=== PATIENT | female | born 1990 | race Caucasian/White ===

== ENCOUNTER 2017-05-15 08:05 | Inpatient (IN) | payer OTHER ==
[~2017-05-15] VITALS: Ht 157.5 cm; Wt 95.7 kg
[2017-05-15] VITALS (16 sets, daily range): BP systolic 114–153; BP diastolic 58–89
[~2017-05-15 08:05] MED LIST: ADVIL,NUPRIN,M200 MG PO; ALBUTEROL SULF8.5 GM IH; ANTABUSE250 MG PO; BACTRIM,SEPT1 TABLET PO; CEFDINIR300 MG PO; CEFTIN500 MG PO; DICLOFENAC SODI75 MG PO; DILAUDID2 MG PO; FOLIC ACID1 MG PO; LEVAQUIN500 MG PO; MELOXICAM7.5 MG PO; MORPHINE SULFAT15 MG; MORPHINE SULFAT30 M2; MOTRIN800 MG PO; NAPROSYN500 MG PO; NO HOME MEDS; NOHOMEMEDS; NORCO 7.5/321 TABLET PO; OMEPRAZOLE40 M1 PO; PHENERGAN25 MG PR; PREDNISONE20 MG PO; PROMETHAZINE HC25 M1 PO; THIAMINE HCL100 MG PO; TIZANIDINE HCL4 M1 PO; TIZANIDINE HCL4 MG; TYLENOL REGULA325 MG PO; TYLENOL WITH C1 EACH PO; ULTRAM50 MG PO; VALIUM5 MG PO; VICODIN,LORT1 TABLET PO; ZANAFLEX4 M1 PO; ZITHROMAX250 MG PO; ZOFRAN ODT4 MG PO; ZOFRAN4 MG PO; celexa PO; seroquel PO; tramadol PO; zanaflex PO
[2017-05-15] MEDS ORDERED: UNISOM50 MG PO (08:43)
[2017-05-15] MEDS ORDERED: SUBOXONE 2 MG-1 EACH PO (08:44)
[2017-05-15 10:35] LABS: BASOPHIL (%) 0.5 % (0-1); EOSINOPHIL (%) 0.8 % (0-5); EOSINOPHIL COUNT 0.1 K/uL (0-0.3); HEMATOCRIT 29.5 % (36.0-46.0); HEMOGLOBIN 10.4 G/DL (11.9-15.5); IMMATURE GRANULOCYTE (%) 0.3 % (0.0-0.7); LYMPHOCYTE (%) 25.3 % (15-42); LYMPHOCYTE COUNT 1.6 K/uL (1.0-2.8); MCH 31.8 PG (29.0-34.0); MCHC 35.3 G/DL (30.0-36.0); MCV 90.2 FL (83-99); MONOCYTE (%) 8.4 % (3-12); MONOCYTE COUNT 0.5 K/uL (0-0.8); NEUTROPHIL (%) 64.7 % (45-76); NEUTROPHIL COUNT 4.1 K/uL (1.8-6.4); PLATELET COUNT 202 K/uL (156-360); RBC DIS.WIDTH-CV 13.2 % (11.8-14.6); RBC DIS.WIDTH-SD 43.3 % (39-53); RED BLOOD COUNT 3.27 M/uL (3.80-5.20); WHITE BLOOD COUNT 6.3 K/uL (4.1-10.2)
[2017-05-15 11:20] LABS: BENZODIAZEPINES, URINE SCREEN Negative (200 ng/mL)
[2017-05-16] VITALS (28 sets, daily range): BP systolic 96–148; BP diastolic 53–88
[2017-05-17] MEDS ORDERED: IBUPROFEN800 MG PO (01:58)
[2017-05-17 07:42] LABS: BASOPHIL (%) 0.2 % (0-1); EOSINOPHIL (%) 0.8 % (0-5); EOSINOPHIL COUNT 0.1 K/uL (0-0.3); HEMATOCRIT 27.4 % (36.0-46.0); HEMOGLOBIN 9.2 G/DL (11.9-15.5); IMMATURE GRANULOCYTE (%) 0.4 % (0.0-0.7); MCH 30.3 PG (29.0-34.0); MCHC 33.6 G/DL (30.0-36.0); MCV 90.1 FL (83-99); MONOCYTE (%) 7.6 % (3-12); MONOCYTE COUNT 0.6 K/uL (0-0.8); NEUTROPHIL COUNT 5.5 K/uL (1.8-6.4); PLATELET COUNT 192 K/uL (156-360); RBC DIS.WIDTH-CV 13.1 % (11.8-14.6); RBC DIS.WIDTH-SD 42.7 % (39-53); RED BLOOD COUNT 3.04 M/uL (3.80-5.20); WHITE BLOOD COUNT 8.3 K/uL (4.1-10.2)
[2017-05-17 23:20] VITALS: BP 135/78
== END 2017-05-18 18:10 | disposition home or self-care (01) | DRG 775 ==
LOC: LDRP-OP 08:05 → 2WEST 08:06 → LDRP-OP 17:05 → 2WEST 05-16 16:25
PROVIDERS: Midwife; Nurse Practitioner; Obstetrics & Gynecology Gynecology
PROC: 3E033VJ Introduction of Other Hormone into Peripheral Vein, Percutaneous Approach (ICD-10-PCS; principal; 2017-05-15)
PROC: 3E0P7VZ Introduction of Hormone into Female Reproductive, Via Natural or Artificial Opening (ICD-10-PCS; principal; 2017-05-15)
PROC: 00HU33Z Insertion of Infusion Device into Spinal Canal, Percutaneous Approach (ICD-10-PCS; 2017-05-16)
PROC: 10907ZC Drainage of Amniotic Fluid, Therapeutic from Products of Conception, Via Natural or Artificial Opening (ICD-10-PCS; 2017-05-16)
PROC: 0U7C7ZZ Dilation of Cervix, Via Natural or Artificial Opening (ICD-10-PCS; 2017-05-16)
PROC: 10E0XZZ Delivery of Products of Conception, External Approach (ICD-10-PCS; 2017-05-16)
PROC: 3E0R3BZ Introduction of Anesthetic Agent into Spinal Canal, Percutaneous Approach (ICD-10-PCS; 2017-05-16)
DX: O76 Abnormality in fetal heart rate and rhythm complicating labor and delivery (principal); O36.5930 Maternal care for other known or suspected poor fetal growth, third trimester, not applicable or unspecified; O69.81X0 Labor and delivery complicated by cord around neck, without compression, not applicable or unspecified; O99.323 Drug use complicating pregnancy, third trimester; F11.20 Opioid dependence, uncomplicated; O99.02 Anemia complicating childbirth; D50.9 Iron deficiency anemia, unspecified; Z3A.40 40 weeks gestation of pregnancy; Z37.0 Single live birth; O99.344 Other mental disorders complicating childbirth; F43.10 Post-traumatic stress disorder, unspecified; F31.9 Bipolar disorder, unspecified; O99.89 Other specified diseases and conditions complicating pregnancy, childbirth and the puerperium; M41.9 Scoliosis, unspecified; O99.213 Obesity complicating pregnancy, third trimester; E66.9 Obesity, unspecified; Z68.33 Body mass index [BMI] 33.0-33.9, adult; Z87.891 Personal history of nicotine dependence
CPT/HCPCS: 80306 90; 85025; 90686; C1755; G0378; J0571; J7120